=== PATIENT | female | born 1990 | race Caucasian/White ===

== ENCOUNTER → 2020-03-09 | Outpatient (CLI) | payer BC | LOC: COL.CARD 09:34 | DX: R00.0 Tachycardia, unspecified (principal) ==

== ENCOUNTER 2020-04-25 14:34 | Emergency (ER) | payer BC ==
[~2020-04-25] VITALS: Ht 162.6 cm; Wt 109.1 kg
[2020-04-25 14:40] VITALS: TEMP 98.7
--- NOTE | 2020-04-25 15:52 | NUR ---
1552-Patient back from U/S for doppler of RLE. Assisted into recliner and placed on EFM. Reports good movement. Denies LOF or vaginal bleed. Denies contractions. FHR reactive baseline FHR 130bpm, active baby with obvious movement. RN holding EFM in place due to movement. 1636-RN takes patient off EFM, updated ER staff with reactive strip.
[2020-04-25 16:10] VITALS: BP 131/72; PULSE 92
[2020-04-25 16:10] LABS: COLLECTION METHOD CLEAN CATCH
[2020-04-25 16:17] LABS: PH 8 (5-8); SQUAMOUS EPITHELIAL 0-2 /hpf; URINE APPEARANCE Clear; URINE BACTERIA Rare /hpf; URINE BILIRUBIN Negative (NEGATIVE); URINE BLOOD 2+ (NEGATIVE); URINE COLOR Straw; URINE GLUCOSE Negative (NEGATIVE); URINE KETONE Negative (NEGATIVE); URINE LEUKOCYTE ESTERASE Negative (NEGATIVE); URINE NITRATE Negative (NEGATIVE); URINE PROTEIN(semi-quant) Negative (NEGATIVE); URINE UROBILINOGEN Negative (NEGATIVE)
[2020-04-25 16:30] VITALS: BP 119/70; PULSE 88
[2020-04-25 16:53] VITALS: BP 120/75; PULSE 92
== END 2020-04-25 16:53 | disposition home or self-care (01) ==
LOC: COL.ER 14:34
PROVIDERS: Emergency Medicine
DX: O26.893 Other specified pregnancy related conditions, third trimester (principal); R60.0 Localized edema; Z3A.40 40 weeks gestation of pregnancy

== ENCOUNTER 2020-05-01 08:09 | Inpatient (IN) | payer BC ==
[~2020-05-01] VITALS: Ht 162.6 cm; Wt 109.5 kg
[2020-05-04] VITALS (64 sets, daily range): BP systolic 92–137; BP diastolic 46–83; PULSE 69–118; TEMP 97.8–99.2
[2020-05-04] MEDS ORDERED: ASPIRIN 81M81 MG/TA2 PO (06:21)
[2020-05-04] MEDS ORDERED: PROAIR HFA0.09 MG/AC IH (06:21)
[2020-05-04] MEDS ORDERED: PROTONIX 40MG T40 MG PO (06:22)
[2020-05-04] MEDS ORDERED: PRENATAL MVI (06:22)
--- NOTE | 2020-05-04 07:15 | NUR ---
Pt arrives on unit ambulatory with spouse of IOL. G1L0 at 41.1 weeks gestation. Changed into clean gown. EFM and toco applied. VSS. IV started in RH. Labs drawn. LR infusing. Consents signed. Denies regular ctx, leaking of fluid, vaginal bleeding and reports GFM. Admission assessment completed. Pt udpated on POC. Safety reviewed. Bed locked in low positon. Call light within reach. No questions or concerns at this time.
[2020-05-04 07:50] LABS: BASO % 0.2 % (0.0-2.0); EOS # 0.1 (0.0-0.7); EOS % 1.3 % (0-4.0); GRAN # 6.6 (1.4-6.5); GRAN % 71.1 % (42.2-75.2); HEMOGLOBIN 10.6 g/dl (12.5-16.0); LYMPH # 1.6 (1.2-3.4); LYMPH % 17.2 % (20.0-51.0); MEAN CELL VOLUME 83 fl (80.0-100.0); MEAN CORPUSCULAR HEMOGLOBIN 27 pg (27.0-31.0); MEAN CORPUSCULAR HGB CONC 33 g/dl (33.0-37.0); MEAN PLATELET VOLUME 9.9 fl (7.4-10.4); MONO # 0.9 (0.1-0.6); MONO % 9.3 % (1.7-9.3); PLATELET COUNT 179 K/mm3 (130-400); RED BLOOD COUNT 3.93 M/mm3 (4.10-5.30); REDCELL DISTRIBUTION WIDTH-CV 13.4 % (11.5-14.5)
[2020-05-04 07:56] LABS: HEMATOCRIT 32.5 % (37.0-47.0)
--- NOTE | 2020-05-04 15:07 | NUR ---
Pt sitting EOB for epidural placement. Difficulty tracing FHR due to maternal position. RN at bedside adjusting monitors. FHR audible.
--- NOTE | 2020-05-04 15:30 | NUR ---
Late deceleration noted. Ephedrine given. See EMAR. Pt repositioned LL. Pitocin shut off. SVE per this RN 6/-2. 1535-BP noted 95/46. Ephedrine given. See EMAR. Pt repostioned RL. FHR recovers to 135 baseline.
--- NOTE | 2020-05-04 15:50 | NUR ---
RN at bedside. Pulse ox applied to differentiate MHR vs FHR. FHR tracing at 135. Pulse ox tracing 250s. Manual HR obtained at 90 BPM per this RN. Pulse ox tracing MHR in 90s. FHR tracing 135. Pt stated feeling "heart racing." 1555-Cat 1 FHR strip obtained. Pitocin started at 10mU. Dr. Hernández notified. Discussed pt hx of periods of heart racing episodes. Orders to continue expectant management of labor.
--- NOTE | 2020-05-04 19:45 | NUR ---
1939- SVE OF 6-7/80/-2, LATE DECEL NOTED DURING EXAM DROPPING TO THE 90'S AND RECOVERING TO BASELINE AFTER 1 MINUTE. 1940- PT REPOSITIONED INTO HIGH FOWLERS, LATE DECEL NOTED DROPPING INTO THE 70'S, PT TURNED TO LEFT WEDGE. FHT RECOVERED TO BASELINE AFTER APPROXIMATELY 3 MINUTES. 1943- PT REPOSITIONED INTO SEMIFOWLER WITH LEFT WEDGE, FHT'S REMAIN STABLE IN THE 150'S.
--- NOTE | 2020-05-04 21:05 | NUR ---
2051- POSITION CHANGE TO SEMI LYN WITH RIGHT WEDGE. LATE DECEL IN TO THE 90'S THAT BEGAN TO RETURN TO BASELINE AFTER APPROXIMATELY 1 MINUTE THEN DROPPED AGAIN INTO THE 60'S 2053- PT TURNED TO LEFT LATERAL. FHT'S REMAIN IN THE 60'S. 2054- SVE OF 7/80/-2. Baljit WHITLEY RN IN ROOM TO ASSIST. 2055- LR BOLUS STARTED, O2 ON VIA FACE MASK AT 10L, PITOCIN OFF, PT TO HANDS AND KNEES. SVE PERFORMED, REMAINS UNCHANGED, BRIGHT RED BLOOD AND NICKEL SIZED CLOT ON GLOVE FOLLOWING SVE. 2056- FHT'S RETURN TO BASELINE OF 150. 2100- FHT'S REMAIN IN THE 150'S. BOLUS STOPPED, O2 OFF. 2104- PT REPOSITIONED TO SEMIFOWLERS, SVE UNCHANGED.
--- NOTE | 2020-05-04 21:17 | NUR ---
DR. ORTIZ IN ROOM AT THIS TIME TO EVALUATE PT. SVE PERFORMED, DR. ORTIZ STATES THAT WHEN PT IS PAULIE HER CERVIX IS 5CM BUT WHEN NOT PAULIE SHE IS MORE 6-7CM AND FLUID LOOKS BLOODY. BEGINS DISCUSSION WITH PT AND SPOUSE ABOUT CONCERNS OF RECURRING LATE DECELS, UNCHANGED SVE OVER THE LAST 4-5 HOURS, AND POSSIBLE NEED FOR C/S. WHILE DISCUSSING THIS ANOTHER LATE DECEL OCCURS, DROPPING INTO THE 80'S, LASTING FOR APPROXIMATLEY 2.5 MINUTES. PT TURNED TO LEFT WEDGE. PT AND SPOUSE ASK FOR A FEW MINUTES TO DISCUSS OPTIONS AT 2130. PT AND SPOUSE OPT FOR C/S AT 2133.
--- NOTE | 2020-05-04 21:45 | NUR ---
2137- MONS PUBIS CLIPPED, ABDOMINAL SCRUB PERFORMED. 2140- BENTLEY EMPTIED, 700MLS OUT. 2144- MONITORING DC'D, PT TO OR VIA BED.
[2020-05-05] VITALS (10 sets, daily range): BP systolic 109–131; BP diastolic 68–88; PULSE 69–84; TEMP 97.7–98.5
--- NOTE | 2020-05-05 03:00 | NUR ---
Ca Cath care and pericare provided at this time. ABD binder remains in place. SCDs on bilateral lower extremities. Patient reports her pain is still present however is "just there" and not uncomfortable at this time. POC reviewed. Denied questions or concerns. Going to go to sleep.
[2020-05-05 08:49] LABS: HEMATOCRIT 27.6 % (37.0-47.0); HEMOGLOBIN 8.9 g/dl (12.5-16.0)
[2020-05-05] MEDS ORDERED: PERCOCET 325 MG1 TA2 PO (09:00)
[2020-05-05] MEDS ORDERED: IBU600 MG PO (09:00)
[2020-05-06 07:35] VITALS: BP 124/73; PULSE 89; TEMP 97.5
[2020-05-06 16:19] VITALS: BP 124/76; PULSE 88; TEMP 97.8
[2020-05-06 20:15] VITALS: BP 115/79; PULSE 87; TEMP 98.2
[2020-05-07 07:10] VITALS: BP 130/86; PULSE 91; TEMP 97.7
== END 2020-05-07 12:30 | disposition home or self-care (01) | DRG 788 ==
LOC: LDR 08:09 → OB 05-04 07:18 → LDR 05-04 09:12 → OB 05-05 03:25
PROVIDERS: ADMIT Obstetrics & Gynecology
PROC: 10D00Z1 Extraction of Products of Conception, Low, Open Approach (ICD-10-PCS; principal; 2020-05-04)
DX: O48.0 Post-term pregnancy (principal); Z3A.41 41 weeks gestation of pregnancy; Z37.0 Single live birth; O76 Abnormality in fetal heart rate and rhythm complicating labor and delivery
CPT/HCPCS: J0690; J1885; J2270; J2370; J2400; J2405; J2590; J2795; J3010; J7120